=== PATIENT | male | born 1945 | race Caucasian/White ===

== ENCOUNTER 2016-08-23 08:34 | Inpatient (IN) | payer OTHER ==
[~2016-08-23 08:34] MED LIST: ACETAMINOPHEN 325 MG TAB PO ONE; CEFAZOLIN 2 GM/DEXTR 100 ML IV ONE; CHLORHEXIDINE GLUC HIBICLENS 118 ML BTL TP ONE; DEXAMETHASONE 4 MG/ML VIAL IVP ONE; FAMOTIDINE 20 MG TAB PO ONE; ROPI/epiNEPH/KETOROLAC JOINT COCKTAIL IU ONE; TRANEXAMIC ACID 3,000 MG in NS 50 ML IRR ONE
[2016-08-23] MEDS ORDERED: TRANEXAMIC ACID 3,000 MG/50 ML BAG IRR ONE (09:21)
[2016-08-23] MEDS ORDERED: DEXAMETHASONE 4 MG/ML VIAL ONE (09:32)
[2016-08-23] MEDS ORDERED: ACETAMINOPHEN 325 MG TAB ONE (09:32)
[2016-08-23] MEDS ORDERED: FAMOTIDINE 20 MG TAB ONE (09:32)
[2016-08-23] MEDS ORDERED: CEFAZOLIN 2 GM/DEXTROSE/100 ML BAG IV ONE (09:32)
[2016-08-23] MEDS ORDERED: LIDOCAINE 1% 2 ML INJ ONE (09:33)
[2016-08-23] MEDS ORDERED: fentaNYL 100 MCG/2 ML INJ ONE (10:26)
[2016-08-23] MEDS ORDERED: LIDOCAINE 1% 5 ML SDV ID PRN (10:38)
[2016-08-23] MEDS ORDERED: LR 1,000 ML IV ONE (10:38)
[2016-08-23] MEDS ORDERED: MIDAZOLAM 2 MG/2 ML VIAL ONE (11:02)
[2016-08-23] MEDS ORDERED: LIDOCAINE 2% 5 ML SDV ONE (11:15)
[2016-08-23] MEDS ORDERED: LACTULOSE 20 GM/30 ML UDCUP PO PRN (11:42)
[2016-08-23] MEDS ORDERED: BISACODYL 10 MG SUPP PR PRN (11:42)
[2016-08-23] MEDS ORDERED: DIPHENOXYLATE/ATROPINE LOMOTIL 1 TAB PO PRN (11:42)
[2016-08-23] MEDS ORDERED: PHARMACY PAIN CONSULT 1 EA MISC PRN (11:42)
[2016-08-23] MEDS ORDERED: POLYETHYLENE GLYCOL 3350 17 GM PKT PO PRN (11:42)
[2016-08-23] MEDS ORDERED: METOCLOPRAMIDE 10 MG/2 ML VIAL IVP PRN (11:42)
[2016-08-23] MEDS ORDERED: ONDANSETRON DISINTEGRATING 4 MG TAB PO PRN (11:42)
[2016-08-23] MEDS ORDERED: MAGNESIUM HYDROXIDE 30 ML UDCUP PO PRN (11:42)
[2016-08-23] MEDS ORDERED: ONDANSETRON 4 MG/2 ML VIAL IVP PRN (11:42)
[2016-08-23] MEDS ORDERED: PROMETHAZINE HCL 25 MG SUPPR PR PRN (11:42)
[2016-08-23] MEDS ORDERED: diphenhydrAMINE 25 MG CAP PO PRN (11:42)
[2016-08-23] MEDS ORDERED: TEMAZEPAM 15 MG CAP PO PRN (11:42)
[2016-08-23] MEDS ORDERED: CYCLOBENZAPRINE 10 MG TAB PO PRN (11:42)
[2016-08-23] MEDS ORDERED: LR 1,000 ML IV SCH (12:00)
--- NOTE | 2016-08-23 12:39 | POSTOPPROG ---
Post Op Note Date of Operation: 08/23/16 Surgeon: Andrzej Tamayo Marking Room Supervisor: gissell tamayo Anesthesiologist: dr. roberts Anesthesia: Spinal Pre-op Diagnosis: Left hip OA Post-op Diagnosis: same Indication: left hip pain due to OA that failed conservative measures Procedure: L RENETTA ant approach Findings: severe hip OA Inf/Abcess present in the surg proc area at time of surgery?: No EBL: 100-500
[2016-08-23] MEDS: ACETAMINOPHEN 325 MG TAB PO SCH ×3 (14:35→23:46)
[2016-08-23] MEDS: oxyCODONE IR 5 MG TAB PO PRN ×3 (16:32→23:46)
[2016-08-23] MEDS: ceFAZolin 2 GM/DEXTROSE 100 ML IV SCH (19:58)
[2016-08-23] MEDS: ASPIRIN 325 MG TAB PO SCH (19:59)
[2016-08-23] MEDS: FAMOTIDINE 20 MG TAB PO SCH (19:59)
[2016-08-23] MEDS: SENNOSIDES/DOCUSATE SODIUM TAB PO SCH (19:59)
[2016-08-24] MEDS: ceFAZolin 2 GM/DEXTROSE 100 ML IV SCH (04:14)
[2016-08-24] MEDS: ACETAMINOPHEN 325 MG TAB PO SCH ×2 (05:24→11:33)
[2016-08-24] MEDS: oxyCODONE IR 5 MG TAB PO PRN (05:25)
[2016-08-24 05:34] LABS: HEMATOCRIT 37.4 % (40.0-51.0)
--- NOTE | 2016-08-24 06:38 | GOP ---
[f rep st] OPERATIVE REPORT DATE OF OPERATION: 08/23/2016 SURGEON: Shakila Liu MD GRAPHIC ILLUSTRATOR: JAZMÍN Tarango. ANESTHESIA: Spinal. PREOPERATIVE DIAGNOSIS: Left hip osteoarthritis. POSTOPERATIVE DIAGNOSIS: Left hip osteoarthritis. PROCEDURE PERFORMED: Left hip total arthroplasty. FINDINGS: ESTIMATED BLOOD LOSS: 200 cc. INDICATIONS: The patient has progressively worsening arthritis of the hip which has failed medical management. The patient understands the treatment options including continued non-operative care and has selected surgical intervention. The patient has decided to undergo total hip arthroplasty via the direct anterior approach, understanding the risks of the procedure including , but not limited to, neurovascular injury, infection, persistent pain, component wear and loosening, deep venous thrombosis, pulmonary embolism, limb length inequality, hip instability (including dislocation), and intra-operative fractures. DESCRIPTION OF PROCEDURE: After proper identification of the patient including verification and marking the surgical site, the patient was brought to the operating room and placed in the supine position. All bony prominences were well padded. Anesthesia was induced without complication and intravenous prophylactic antibiotics were administered prior to skin incision. The operative leg was placed in the Trumpf Arch table extension and the well leg in a Yellofin leg rios. The patient was prepped and draped in the usual sterile fashion. The C-arm was draped for intra-operative fluoroscopy to check acetabular position, femoral component position including leg length and femoral offset. Attention was then drawn to surgical exposure of the hip. An incision was made with a #10 Bard Black blade starting 3 cm lateral and 3 cm distal to the anterior superior iliac spine measuring 8-10 cm and coursing distally toward the greater trochanter. The skin and subcutaneous tissues were divided sharply down to the fascia carlos. The fascia carlos was incised in line with the skin incision exposing the underlying tensor fascia carlos muscle. The muscle was bluntly elevated from the fascia and the first extracapsular Cobra retractor was placed laterally at the junction of the superior femoral neck and greater trochanter. The lateral femoral circumflex vessels were identified, cauterized , and divided with the Aquamantys bipolar cautery. The deep investing fascia of the TFL was divided to allow proper mobilization of the muscle preventing damage during the retraction. The reflected head of the rectus femoris muscle was elevated off the anterior hip capsule and a medial Cobra retractor was placed just proximal to the lesser trochanter. The anterior capsulotomy was made sharply from the superolateral acetabulum to the saddle junction of the superior femoral neck and greater trochanter, then coursing inferomedial towards the lesser trochanter. The retractors were then placed in the intracapsular position for femoral neck osteotomy. Corresponding to pre-operative templating, the osteotomy was made with the oscillating saw carefully protecting the greater trochanter and soft tissues. The femoral head was removed from the acetabulum with a corkscrew and confirmed to be severely arthritic with exposed bone, deformity and osteophytes. Similar findings were confirmed in the acetabulum. The Arch table extension was then placed in 40 degrees external rotation. Attention was then drawn to the acetabular preparation. After placement of the anterior and posterior Cobra retractors outside the labrum and intracapsular, the circumferential labrum was removed sharply. The foveal contents were then removed and hemostasis obtained with cautery. The first reamer selected was sized using the removed femoral head. Reaming began with medialization and then commenced in 2 mm increments at 45 degrees of abduction and 15 degrees of anteversion using fluoroscopic navigation. Reaming ceased 1 mm less than the definitive acetabular component and corresponded to the pre-operative templating. The final acetabular component was inserted using fluoroscopy to achieve proper orientation yielding excellent purchase and stability in the acetabulum. The final acetabular liner was then placed and its seating confirmed. Attention was then turned to the femur. The Arch table extension was placed in extension and adduction, delivering the osteotomized femoral neck into the wound. A 2-pronged femoral elevator was placed at the calcar and another at the tip of the greater trochanter. The posterolateral capsule was released with cautery allowing mobilization of the femur lateral and anterior for preparation. The external rotators were visualized and preserved. A curette and rongeur were used to open the starting point for broaching. Serial broaching started with the #0 broach and ended with the broach that exhibited excellent fit in the proximal femur. A change in pitch during mallet strikes was accompanied by the inability to advance the broach any further. The trial reduction was performed and fluoroscopic navigation was utilized to check limb length. Adjustments were made to equalize limb length accordingly. After the final trials were accepted they were removed and the wound was copiously lavaged. The femoral component was seated to the same depth as the final broach and the femoral head was impacted onto the clean trunnion. The hip was then reduced for the final time and once more fluoroscopy was used to check that limb length equality was achieved. The wound was irrigated and closed in layers, the fascia carlos with 2-0 Quill, the subcutaneous tissue with 2-0 Quill, and the skin with Dermabond. Sterile dressings were applied. Final sharps and sponge counts were accurate. The patient was then transferred to a hospital bed and brought to the recovery room in stable condition. IMPLANTS: Accolade II size 5 at 127. The acetabular component is a 56 mm Tritanium. The liner is a Trident X3, 36 mm. The head is a Biolox Delta 36 mm -2.5. /[id number]/MODL MTDD
[2016-08-24 07:37] VITALS: BP 126/52; PULSE 67; RESP 14; TEMP 98.2; O2SAT 90
[2016-08-24] MEDS: ASPIRIN 325 MG TAB PO SCH (08:41)
[2016-08-24] MEDS: FAMOTIDINE 20 MG TAB PO SCH (08:41)
[2016-08-24] MEDS: SENNOSIDES/DOCUSATE SODIUM TAB PO SCH (08:41)
--- NOTE | 2016-08-24 09:49 | SOAPPROG ---
SOAP Progress Note Assessment/Plan: Assessment: Patient is doing well POD 1 s/p L RENETTA Pain management: pain is well controlled on oral pain meds. VTE ppx: recommend aspirin daily for 3 weeks, cont DOROTEO and SCDs Anemia: level is expected initially postop. Asymptomatic. Continue to monitor D/c planning: d/c to home today pending release from PT Plan: 08/24/16 09:48 Subjective: Norm is doing well today, denies SOB, chest pain and N/V. Objective: Vital Signs Temp Pulse Resp BP Pulse Ox 36.8 C 67 14 126/52 H 90 L 08/24/16 07:34 08/24/16 07:34 08/24/16 07:34 08/24/16 07:34 08/24/16 07:34 Laboratory Results 08/24/16 04:23 08/23/16 08/24/16 08/25/16 05:59 05:59 05:59 Intake Total 4463 Output Total 2130 275 Balance 2333 -275 LLE: incision dressing is clean and dry, NVI, +pf/df ICD10 Worksheet Patient Problems: Problems Problem Status Onset Primary localized osteoarthritis of left hip Acute
[2016-08-24] MEDS ORDERED: PNEUMOC 13-VAL CONJ-DIP CRM/PF 0.5 ML SYR IM ONE (10:31)
--- NOTE | 2016-08-25 10:52 | GDS ---
[f rep st] DISCHARGE SUMMARY ADMISSION DIAGNOSIS: Left hip osteoarthritis. DISCHARGE DIAGNOSIS: Left hip osteoarthritis. PROCEDURE: Left total hip arthroplasty. VTE PROPHYLAXIS: Aspirin recommended for 3 weeks daily. BRIEF DESCRIPTION OF HOSPITAL STAY: Patient was admitted for an elective joint arthroplasty. The p atient tolerated the procedure well and has passed physical therapy. The patient was given appropri ate antibiotic prophylaxis and venous thromboembolism prophylaxis. The patient's pain was well cont rolled on oral pain medication, patient was holding down food, and had urinated. Decision was made to discharge the patient. The patient was given post-operative prescriptions pre-operatively. PLAN: Please follow up as scheduled, September 07 at 2 p.m. /[id number]/MODL
== END 2016-08-24 12:44 | disposition home or self-care (01) | DRG 470 ==
LOC: F3N 09:09
PROVIDERS: ADMIT Orthopaedic Surgery; ATTEND Orthopaedic Surgery
PROC: 0SRB04Z Replacement of Left Hip Joint with Ceramic on Polyethylene Synthetic Substitute, Open Approach (ICD-10-PCS; principal; 2016-08-23 11:15)
DX: M16.12 Unilateral primary osteoarthritis, left hip (principal); I71.2 Thoracic aortic aneurysm, without rupture; Z23 Encounter for immunization
CPT/HCPCS: 97116-GP; 97161-GP; 97165-GO; 97530-GP; G0009; G8978-GP-CJ; G8979-GP-CI; G8980-GP-CI; G8987-GO-CI; G8988-GO-CI; G8989-GO-CI; J0171; J0690; J1100; J1885; J2250; J2795; J3010

== ENCOUNTER 2016-12-27 20:49 | Observation (INO) | payer OTHER ==
--- NOTE | 2016-12-27 21:15 | CPEKG ---
Heart Rate: 86 RR Interval: 698 P-R Interval: 208 QRSD Interval: 106 QT Interval: 368 QTC Interval: 440 P [place]: 47 QRS [place]: -14 T Wave [place]: 40 EKG Severity - ABNORMAL ECG - EKG Impression: SINUS RHYTHM EKG Impression: INFERIOR INFARCT, OLD Electronically Signed By: Enrique Burt 27-Dec-2016 23:31:38
[2016-12-27] MEDS ORDERED: ASPIRIN EC 325 MG TAB PO ONE (21:37)
--- NOTE | 2016-12-27 21:43 | EDPHY ---
H & P Stated Complaint: L CP HPI/ROS: HPI CHIEF COMPLAINT: Left-sided chest pain HISTORY OF PRESENT ILLNESS: Patient very pleasant 71-year-old male, he denies having any significant medical history, he recently a few months ago had a left hip replacement. For that preop workup he had an echocardiogram that showed and dilated aortic root, and aortic thoracic aneurysm. He presents to the emergency room left-sided chest discomfort. He states that it is worse when he moves. Additionally it is worse when he breathes in. Sharp in nature. Does not radiate. It is on his left lateral side. States started last night before midnight. Was unable to sleep all night. Tossing and turning. Worse when he moves. Currently 6/10. Worse when he breathes in. No hemoptysis. He does endorse shortness of breath with this. He denies leg pain. Back pain, abdominal pain. Fever. Past Medical History: No medical history Past Surgical History: Left hip replacement Social History: Occasional tobacco denies illicit drugs or daily alcohol use. Family History: Noncontributory ROS REVIEW OF SYSTEMS: A comprehensive 10 point review of systems is otherwise negative aside from elements mentioned in the history of present illness. Exam Constitutional appears nontoxic, triage nursing summary reviewed, vital signs reviewed, awake/alert. Eyes normal conjunctivae and sclera, EOMI, PERRLA. HENT normal inspection, atraumatic, moist mucus membranes, no epistaxis, neck supple/ no meningismus, no raccoon eyes. Respiratory clear to auscultation bilaterally, normal breath sounds, no respiratory distress, no wheezing. Cardiovascular rate normal, regular rhythm, no murmur, no edema, distal pulses normal. Gastrointestinal soft, non-tender, no rebound, no guarding, normal bowel sounds, no distension, no pulsatile mass. Genitourinary no CVA tenderness. Musculoskeletal no midline vertebral tenderness, full range of motion, no calf swelling, no tenderness of extremities, no meningismus, good pulses, neurovascularly intact. Skin pink, warm, & dry, no rash, skin atraumatic. Neurologic awake, alert and oriented x 3, AAOx3, moves all 4 extremities equally, motor intact, sensory intact, CN II-XII intact, normal cerebellar, normal vision, normal speech. Psychiatric normal mood/affect. Heme/Lymph/Immune no lymphadenopathy. Differential diagnosis includes but is not limited to: Pulmonary embolism, pneumonia, aortic dissection, ACS, atypical chest pain, pneumothorax, pneumonia , , , congestive heart failure, tumor, musculoskeletal pain, esophageal pain, GERD, peptic ulcer disease, pancreatitis Medical Decision Making: Plan for this patient IV establishment full secured entrance monitor obtain EKG, troponin, D-dimer, proceed with CT angiogram of his chest to rule out pulmonary embolism as well as aortic dissection. Morphine for pain control. Re-evaluation: EKG interpretation by me on record in [employer] system. Impression time of EK: This is sinus rhythm rate of 86, Q-waves noted in inferior leads to 3 AVF. Old infarct. Otherwise no acute ischemic change. CT scan of the angiogram chest The results of the study are this shows a left lower lobe pulmonary embolism with pulmonary infarct with a small effusion additionally aortic thoracic aneurysm 5.5, additionally a right lower lobe pulmonary nodule this needs to be followed up 6 months as he is a smoker., The study was read by Dr. Sevilla. I viewed the images myself on the PACS system. 2252: Have updated this patient. He understands to be in the hospital for left lower pulmonary embolism. Pulmonary infarct. Pain control. Additionally will need evaluate his thoracic aneurysm. Additionally I did notify him he has a pulmonary nodule. No evidence of aortic dissection. He is fine with this plan. Lovenox has been given. Source: Patient - Personal History Current Tetanus/Diphtheria Vaccine: Unsure Current Tetanus Diphtheria and Acellular Pertussis (TDAP): Unsure - Medical/Surgical History Hx Asthma: No Hx Chronic Respiratory Disease: No Hx Diabetes: No Hx Cardiac Disease: No Hx Renal Disease: No Hx Cirrhosis: No Hx Alcoholism: Yes Hx HIV/AIDS: No Hx Splenectomy or Spleen Trauma: No Other PMH: aortic aneurysm, L hip replacement, cyst removed from kidney - Social History Smoking Status: Current some day smoker Constitutional: Initial Vital Signs Temperature (C) 38.3 C 12/27/16 20:59 Heart Rate 86 12/27/16 20:59 Respiratory Rate 18 12/27/16 20:59 Blood Pressure 156/87 H 12/27/16 20:59 O2 Sat (%) 93 12/27/16 20:59 O2 Delivery Mode Nasal Cannula O2 (L/minute) 2 Allergies/Adverse Reactions: No Known Allergies Allergy (Verified 12/27/16 20:58) Home Medications: Medication Instructions Recorded Enoxaparin [Lovenox 80 MG (*)] 70 mg SC BID #14 syr 12/28/16 Herbals/Supplements -Info Only 1 ea PO DAILY 12/28/16 Hydrocodone/APAP 5/325 [Douds 1 - 2 tab PO Q4HRS PRN #30 tab 12/28/16 5/325 (*)] Multivitamins [Multivitamin (*)] 1 each PO DAILY 12/28/16 Warfarin Sodium [Coumadin 5MG (*)] 5 mg PO DAILY #30 tab 12/28/16 Medical Decision Making - Data Points Laboratory Results: Laboratory Results 12/27/16 21:20 12/27/16 21:20 Medications Given: Discontinued Medications Hydrocodone Bitart/Acetaminophen (Douds 5/325) 1 - 2 tab PO Q4HRS PRN PRN Reason: Pain, Moderate Able to Take PO Stop: 01/07/17 00:26 Last Admin: 12/28/16 13:54 Dose: 1 tab Aspirin (Aspirin) 324 mg PO EDNOW ONE Stop: 12/27/16 21:52 Last Admin: 12/27/16 22:47 Dose: 324 mg Aspirin Buffered (Aspirin Ec) 325 mg PO EDNOW ONE Stop: 12/27/16 21:38 Last Admin: 12/27/16 22:55 Dose: Not Given Enoxaparin Sodium (Lovenox) 70 mg SC EDNOW ONE Stop: 12/27/16 23:04 Last Admin: 12/27/16 23:18 Dose: Not Given Enoxaparin Sodium (Lovenox) 70 mg SC EDNOW ONE Stop: 12/27/16 23:16 Last Admin: 12/27/16 23:14 Dose: 70 mg Enoxaparin Sodium (Lovenox) 70 mg SC BID NAI Stop: 06/26/17 09:44 Last Admin: 12/28/16 10:18 Dose: 70 mg Hydromorphone HCl (Dilaudid) 0.5 - 1 mg IVP Q4HRS PRN PRN Reason: Pain, Severe Unable to Take PO Stop: 01/07/17 00:26 Last Admin: 12/28/16 08:09 Dose: 1 mg Sodium Chloride (Ns) 1,000 mls @ 0 mls/hr IV EDNOW ONE; Wide Open PRN Reason: Protocol Stop: 12/27/16 21:52 Last Admin: 12/27/16 22:48 Dose: 1,000 mls Sodium Chloride (Ns) 1,000 mls @ 50 mls/hr IV CONT NAI Stop: 06/26/17 00:29 Last Admin: 12/28/16 05:43 Dose: 1,000 mls Morphine Sulfate (Morphine) 4 mg IVP EDNOW ONE Stop: 12/27/16 21:57 Last Admin: 12/27/16 22:49 Dose: 4 mg Ondansetron HCl (Zofran) 4 mg IVP EDNOW ONE Stop: 12/27/16 21:57 Last Admin: 12/27/16 22:47 Dose: 4 mg Departure - Departure Disposition: [facility] Acute Clinical Impression: Lung nodule Pulmonary emboli Qualifiers: Pulmonary embolism type: other Chronicity: acute Acute cor pulmonale presence: without acute cor pulmonale Qualified Code(s): I26.99 - Other pulmonary embolism without acute cor pulmonale Thoracic aortic aneurysm Qualifiers: Presence of rupture: without rupture Qualified Code(s): I71.2 - Thoracic aortic aneurysm, without rupture Condition: Fair
[2016-12-27 21:49] LABS: % IMMATURE GRANULYOCYTES 0.4 % (0.0-1.1); ABSOLUTE IMMATURE GRANULOCYTES 0.05 10^3/uL (0.00-0.10); ADD DIFF? NO; ADD MORPH? NO; ADD SCAN? NO; ATYPICAL LYMPHOCYTE FLAG 0 (0-99); FRAGMENT RBC FLAG 0 (0-99); HEMATOCRIT 48.1 % (40.0-51.0); HEMOGLOBIN 16.1 g/dL (13.7-17.5); LEFT SHIFT FLG 0 (0-99); LIPEMIA HEMOLYSIS FLAG 80 (0-99); MEAN CELL HEMOGLOBIN 31.6 pg (27.9-34.1); MEAN CELL HEMOGLOBIN CONCENTR. 33.5 g/dL (32.4-36.7); MEAN CELL VOLUME 94.3 fL (81.5-99.8); MEAN PLATELET VOLUME 9.5 fL (8.7-11.7); PLATELET CLUMPS FLAG 0 (0-99); PLATELET COUNT 169 10^3/uL (150-400); RED CELL DISTRIBUTION WIDTH 12.5 % (11.5-15.2)
[2016-12-27] MEDS ORDERED: NS 1,000 ML IV ONE (21:51)
[2016-12-27] MEDS ORDERED: ASPIRIN 81 MG CHEWABLE TAB PO ONE (21:51)
[2016-12-27 21:52] LABS: ANION GAP 12 mEq/L (8-16); CARBON DIOXIDE 21 mEq/l (22-31); CHLORIDE 104 mEq/L (97-110); GLOMERULAR FILTRATION RATE > 60; GLUCOSE 120 mg/dL (70-100); POTASSIUM 3.9 mEq/L (3.5-5.2); SODIUM 137 mEq/L (134-144)
[2016-12-27] MEDS ORDERED: IOPAMIDOL (ISOVUE 370) 100 ML BTL IV ONE (21:56)
[2016-12-27] MEDS ORDERED: ONDANSETRON 4 MG/2 ML VIAL IVP ONE (21:56)
[2016-12-27 22:03] LABS: TROPONIN I < 0.012 ng/mL (0.000-0.034)
[2016-12-27 22:12] LABS: INR 1.06 (0.83-1.16); PROTIME(PATIENT) 13.7 SEC (12.0-15.0)
[2016-12-27 22:13] LABS: ALANINE AMINOTRANSFERASE 28 IU/L (21-72); ALBUMIN 4.1 g/dL (3.5-5.0); ALKALINE PHOSPHATASE 69 IU/L (38-126); APTT 33.1 SEC (23.0-38.0); ASPARTATE AMINOTRANSFERASE 21 IU/L (17-59); BILIRUBIN,TOTAL 1.3 mg/dL (0.1-1.4); BILIRUBIN-CONJUGATED 0.3 mg/dL (0.0-0.5); TOTAL PROTEIN 6.9 g/dL (6.3-8.2)
[2016-12-27 22:25] LABS: CREATINE KINASE-MB FRACTION 0.38 ng/mL (0.00-3.19)
[2016-12-27] MEDS ORDERED: ENOXAPARIN 60 MG/0.6 ML SYR SC ONE ×2 (22:50→23:03)
[2016-12-27] MEDS ORDERED: ENOXAPARIN 80 MG/0.8 ML SYR SC ONE (23:15)
[2016-12-27 23:52] VITALS: RESP 18
[2016-12-28] MEDS ORDERED: NICOTINE 14 MG/24 HR PATCH TD PRN (00:27)
[2016-12-28] MEDS ORDERED: LORazepam 0.5 MG TAB PO PRN (00:27)
[2016-12-28] MEDS ORDERED: HYDROmorphONE/DILAUDID 1 MG/ML INJ IVP PRN (00:27)
[2016-12-28] MEDS ORDERED: ONDANSETRON DISINTEGRATING 4 MG TAB PO PRN (00:27)
[2016-12-28] MEDS ORDERED: HYDROCODONE/APAP 5/325 TAB PO PRN (00:27)
[2016-12-28] MEDS ORDERED: ACETAMINOPHEN 325 MG TAB PO PRN (00:27)
[2016-12-28] MEDS ORDERED: ONDANSETRON 4 MG/2 ML VIAL IVP PRN (00:27)
[2016-12-28] MEDS ORDERED: NS 1,000 ML IV SCH (00:30)
--- NOTE | 2016-12-28 05:15 | GHP ---
[f rep st] HISTORY AND PHYSICAL DATE OF ADMISSION: 12/27/2016 SOURCE: The patient provides history, appears reliable. The MR reviewed and case discussed with ED provider. CHIEF COMPLAINT: Left-sided chest wall pain. HISTORY OF PRESENT ILLNESS: This is a pleasant 71-year-old gentleman with past medical history signi ficant for a moderate size thoracic aortic aneurysm, murmur, history of kidney stones, otherwise fair ly healthy, who presents to the emergency department today with complaints of several days of progres sive left lower chest wall pain. The patient reports he noted a sharp shooting pain, worse with insp iration or movement that is on the left side of his chest wall that radiates to his back. He denies hemoptysis, but has a history of chronic cough, slightly increased from baseline. The patient notes significant shortness of breath and dyspnea on exertion that has progressed over the last day. The p atient states that he has had trouble sleeping and cannot get comfortable secondary to the pain. The patient had a recent history of a total hip arthroplasty some time ago, but reports he had been carley vering well from that. He denies any history of lower extremity swelling. REVIEW OF SYSTEMS: GENERAL: The patient reports that he has been feeling a little flushed and warm, but no fevers or chills. SKIN: No rash or sores. ENT: The patient denies any rhinorrhea or sore t hroat. EYES: The patient does wear glasses. The patient reports slow progressively changing vision , slightly blurry. CV: The patient denies any central or substernal chest pain or pressure. He rep orts that palpitations are an ongoing issue for last several months but no associated lightheadedness or syncope. RESPIRATORY: The patient reports some mild cough and shortness of breath. GI: No nikunj sea, vomiting, abdominal pain, or diarrhea. : No dysuria or hematuria. MUSCULOSKELETAL: The florencio ca complains of diffuse osteoarthritis greatly in his knees and hips. No myalgias. NEURO: The jigna syed denies any headache. No numbness or tingling. PSYCH: The patient denies any anxiety or depre ssion. Remainder of review of systems negative except as noted above. ALLERGIES: No known drug allergies. MEDICATIONS: Aspirin 325 mg p.o. p.r.n. PAST MEDICAL HISTORY: Significant for nephrolithiasis, thoracic aortic aneurysm. The patient states that it was previously 5 cm. He had evaluation with echocardiogram 08/2016. The patient otherwise denied any other medical issues. He does have a history of osteoarthritis and significant alcohol de pendence. PAST SURGICAL HISTORY: Significant for a left total hip arthroplasty, left kidney cyst resection, a crush heel injury requiring surgical intervention. FAMILY HISTORY: Significant for mother with diabetes. No family members with history of DVT or PEs. SOCIAL HISTORY: The patient lives with his . He quit smoking 2-3 years ago with a 40 pack-year history. He currently continues to smoke little cigars, however, 1-2 per day. He denies any drug us e, but he does actually smoke marijuana several times weekly. Beer, the patient was forthcoming with quantity of alcohol consumed on a daily basis, but is somewhat between 5-7 depending on sporting act ivities on TV. The patient with previous history of alcohol abuse. CODE STATUS: The with advance directives. His , Stephanie, is DPOA. The patient desires to be a l imited code. He does not want any compressions or defibrillation, but he is amenable to intubation a nd ventilator support if needed. PHYSICAL EXAMINATION: VITAL SIGNS: On arrival, temperature 38.3, blood pressure 130/77, heart rate 83, respiratory rate 16, O2 saturation 94% on 2 L by nasal cannula. Vitals prior to going to the the [facility] or: Blood pressure 136/77, heart rate 90, respiratory rate 18, O2 saturation 92% on 2 L of nasal can nula. Temperature 36.8. GENERAL: No acute distress, very pleasant, adult male, who is lying quietl y in bed awake. HEAD: Normocephalic, atraumatic. EYES: Extraocular muscles intact. Pupils equal, round, slightly decrease reactivity to light bilaterally but symmetric. No scleral icterus or conju nctival injection. Cataract lens appreciated grossly on exam. ENT: Mucous membranes appear moist. No oropharyngeal erythema or exudates. Dentition is in fair condition. NECK: Supple, trachea midli ne. CV: Regular rate and rhythm. The patient with a 3-4/6 systolic murmur. No rubs or gallops fran reciated. ABDOMEN: Obese, soft, nontender to palpation. No rebound, guarding, or masses appreciate d. RESPIRATORY: Unlabored breathing. Lungs are clear to auscultation with the exception of the lef t lower lung, which has some crackles and decreased breath sounds at the base. : No Ship[place] in place . No suprapubic tenderness to palpation. No CVA tenderness. MUSCULOSKELETAL: The patient has stre ngth 5/5, able to sit up independently. Moves all extremities. NEURO: Cranial nerves 2-12 intact a nd symmetric bilaterally. The patient is awake, alert, and oriented x3. PSYCH: The patient's thoug ht process content is appropriate. LABORATORY DATA: WBC 11.93, hemoglobin and 48.1, MCV of 94.3, platelet count 169. Neutro felicitas count . PT is 13.7, INR 1.06, PTT is 33.1. D-dimer 2.24. Sodium is 137, potassium 3 .9, chloride 104, CO2 of 21, BUN 15, creatinine is 1.0, estimated GFR greater than 60, glucose 120, c alcium 9.0, magnesium 2.1. Total bili 1.3, conjugated bili 0.3, ALT 28, AST 21, alk phos 69, CK 69, troponin less than 0.012. BTNP is 454. Total protein 6.9, albumin 12.1, lipase 135. IMAGING: Chest x-ray, report and image reviewed. Mild increased markings to left base with small le ft effusion. Image reviewed. CT of the chest, image report reviewed, showing subsegmental pulmonary embolus to the left lower lobe with possible associated area pulmonary infarct and small left effusion. Moderate aneurysm of the a scending aorta measuring 5.5 cm, noncalcified. Smooth oval pulmonary nodule right lower lobe. Recom mend 6-month followup. EKG, reviewed myself, normal sinus rhythm in the 80s. QTc is 415. Q waves in the inferior inferolat eral leads present. No acute ST changes. Less than [address] elevation V3. ASSESSMENT AND PLAN: A pleasant 71-year-old gentleman, with no significant past medical history, who presents with complaints of progressively worsening left lower chest wall pain with radiation to his back and dyspnea. 1. Pulmonary embolus located in the left subsegmental region with associated effusion and infarct. The patient's pain currently improved with control on narcotics. Continue with supportive care, oxyg en p.r.n. We will have the patient complete a room air challenge and exertional pulse oximetry prior to discharge. The patient has received Lovenox, and will plan to continue this at this time. Furth er discussion will need to be made with the patient's cardiology team regarding the aneurysm. I am no t able to locate the patient's report of his echocardiogram noting size in August. The patient reports that it seems to be stable in size. Also, will need to consider appropriate options for anticoagulat ion. This was discussed with the patient. He will continue on Lovenox. Until we can ascertain cove rage for other newer agent, the patient will be on Coumadin with a Lovenox bridge. He reports that jourdan romo would feel comfortable self administering Lovenox injections at home if needed. 2. Effusion related to pulmonary embolus. The patient with supplemental oxygen p.r.n. 3. Leukocytosis, mildly elevated and likely reactive in setting of the patient's pulmonary embolus. Will plan to repeat in the morning. Hold off on any antibiotics, or initiate if the patient develop s fevers. 4. Hyperglycemia, mild, nonfasting laboratories. We will continue to monitor closely. No previous history of diabetes. 5. Elevated BTNP related to a pulmonary embolus. Continue to monitor. 6. Nodule in the right lung. Six-month followup studies have been recommended to evaluate for stabi lity of the nodule. 7. Fluids, electrolytes, and nutrition: Intravenous fluids. Electrolyte replacement if needed. Di et as tolerated. 8. Prophylaxis. Therapeutic Lovenox. Sequential compression devices only if tolerated. CODE STATUS: Limited with a request for no compressions or cardiac resuscitations. The patient amen able to intubation. DISPOSITION: The patient admitted to inpatient status on the PCU secondary to severity of pain and e ffusion present with need to further evaluate treatment options in setting of a large thoracic aortic aneurysm. /[id number]/MODL
[2016-12-28 05:52] LABS: % IMMATURE GRANULYOCYTES 0.4 % (0.0-1.1); ABSOLUTE IMMATURE GRANULOCYTES 0.05 10^3/uL (0.00-0.10); ADD DIFF? NO; ADD MORPH? NO; ADD SCAN? NO; ATYPICAL LYMPHOCYTE FLAG 0 (0-99); FRAGMENT RBC FLAG 0 (0-99); HEMATOCRIT 44.6 % (40.0-51.0); HEMOGLOBIN 14.6 g/dL (13.7-17.5); LEFT SHIFT FLG 0 (0-99); LIPEMIA HEMOLYSIS FLAG 80 (0-99); MEAN CELL HEMOGLOBIN CONCENTR. 32.7 g/dL (32.4-36.7); MEAN CELL VOLUME 97.8 fL (81.5-99.8); MEAN PLATELET VOLUME 10.1 fL (8.7-11.7); PLATELET CLUMPS FLAG 0 (0-99); PLATELET COUNT 152 10^3/uL (150-400); RED BLOOD CELL COUNT 4.56 10^6/uL (4.40-6.38); RED CELL DISTRIBUTION WIDTH 12.7 % (11.5-15.2)
[2016-12-28 06:10] LABS: ANION GAP 8 mEq/L (8-16); CALCIUM 8.3 mg/dL (8.5-10.4); CARBON DIOXIDE 26 mEq/l (22-31); CHLORIDE 104 mEq/L (97-110); GLOMERULAR FILTRATION RATE > 60; GLUCOSE 84 mg/dL (70-100); SODIUM 138 mEq/L (134-144)
[2016-12-28 08:04] VITALS: BP 124/66; PULSE 75; TEMP 99.8
[2016-12-28] MEDS ORDERED: ENOXAPARIN 80 MG/0.8 ML SYR SC SCH (09:45)
[2016-12-28 11:03] VITALS: O2SAT 87
--- NOTE | 2016-12-28 12:16 | PDHOMEO2F ---
Home Oxygen Face to Face Home Orders: I certify that a physician or a nurse practitioner or physician's assistant family teacher has had a oynw-ut-jlif encounter with this patient on the date of this order due to the diagnosis listed, which relates to the primary reason the patient requires home oxygen. Alternative treatments have been tried, or considered, and deemed ineffective. It is anticipated that supplemental oxygen will result in improvement with treatment. Home oxygen qualifying diagnosis: pulmonary embolism SpO2 on room air (%): 85% Frequency of home oxygen needed: continuous Home oxygen liters per minute: 2 Home oxygen delivery device: nasal cannula Concentrator: Yes E-tanks for mobility and back up: Yes If ordering portable O2, is the patient mobile in the home?: Yes I certify that, based on these findings, the home oxygen is medically necessary for this patient for the following length of time. Length of time home oxygen needed: 1 month
--- NOTE | 2016-12-28 15:40 | ASMTCMCOM ---
CM Note CM Note Notes: Chart reviewed, pt is a 71 y/o man admitted w/ PE LLL. CM met w/ pt and family for dispo planning. 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 CM provided some information regarding it and provided family with the [facility] "Your Right to Make Healthcare Decisions". Pt willl discharge independent with supportive family. CM available for changes. Date Signed: 12/28/2016 03:39 PM Electronically Signed By:DENIZ Mejias
[2016-12-28] MEDS ORDERED: WARFARIN SODIUM 5 MG TAB PO ONE (16:00)
--- NOTE | 2016-12-28 16:13 | ASDISCHSUM ---
Discharge Information Plan Status:Home with No Needs Medically Cleared to Leave:12/28/2016 Discharge Date:12/28/2016 03:40 PM CM D/C Disposition:Home, Routine, Self-Care ADT D/C Disposition:Home, Routine, Self-Care Projected Discharge Date:12/28/2016 12:00 AM Transportation at D/C: Discharge Delay Reason: Follow-Up Date:12/28/2016 12:00 AM Discharge Slot: Final Diagnosis: Placement Information Patient Contact Information Contact Name:LORI Relationship: Address:[address] [place] [address] City:[facility] Phone: [facility]/Zip Code:[place] [address] Email: Financial Information Financial Class:HMO and PPO Plans Primary Plan Desc:HMO [place] Primary Plan Number:[id number] Secondary Plan Desc:MEDICARE OUTPATIENT Secondary Plan Number:[id number] Assessment Information [facility] CM Progress Note CM Note CM Note Notes: Chart reviewed, pt is a 71 y/o man admitted w/ PE LLL. CM met w/ pt and family for dispo planning. 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 CM provided some information regarding it and provided family with the [facility] "Your Right to Make Healthcare Decisions". Pt willl discharge independent with supportive family. CM available for changes. Date Signed: 12/28/2016 03:39 PM Electronically Signed By:DENIZ Mejias Intervention Information
--- NOTE | 2016-12-28 21:17 | GDS ---
[f rep st] DISCHARGE SUMMARY DISCHARGE DIAGNOSES: 1. Acute pulmonary embolism. 2. Acute hypoxic respiratory failure secondary to PE. 3. Pleuritic chest pain secondary to PE. 4. Thoracic aortic aneurysm, chronic. 5. History of nephrolithiasis. HISTORY OF PRESENT ILLNESS: This is a 71-year-old male with a history of nephrolithiasis and a known thoracic aortic aneurysm, who presents with acute left-sided chest pain. For details of patient's i nitial presentation, please see the history and physical dated 12/27/2016. CONSULTATIVE SERVICES: None. PROCEDURES: On 12/27/2016, patient had a CTA of the chest, which showed subsegmental pulmonary embol i to the left lower lobe with associated pulmonary infarction and small effusion, as well as a modera te aneurysm of the ascending aorta measured at 5.5. HOSPITAL COURSE: 1. Acute pulmonary embolism with infarction. Patient was initiated on anticoagulation. Showed no c linical or radiographic signs of right heart strain. Remained mildly hypoxic and uncomfortable, randall anting hospital admission and titration of pain medication. On the day disposition, the patient was treated with Lovenox, initiated on Coumadin therapy, educated by pharmacy, and discharged with oral p ain medications, as well as home oxygen, with expectations of both pain medications and oxygen would be titratable over the course of the following 5-7 days. The patient will follow in the Anticoagulat ion Clinic in the next 48 hours and with his primary care provider for ongoing medication titration a nd treatment for his pulmonary embolism. 2. Thoracic aortic aneurysm. This is a known diagnosis for this patient. He is already scheduled t o meet with Cardiothoracic Surgery. The patient will maintain this appointment in the next 7-10 days . We will continue this short acting anticoagulation regimen until he is evaluated by the surgeons a nd overall monitoring and surgical plan is placed. 3. Pleuritic chest pain secondary to pulmonary embolism. The patient was provided with oral pain me dications, again with the expectation that those should be titrated off in the next 3-7 days. 4. Acute hypoxic respiratory failure. The patient did require supplemental oxygen particularly with exertion, in the setting of severe pleuritic pain with PE. Patient will be provided with this, and again needs to follow in the next 7-10 days with his outpatient provider for discontinuation of oxyge n when appropriate. MEDICATIONS AT DISPOSITION: Please reference med rec printed on 12/28/2016. PENDING STUDIES: None. FOLLOWUP APPOINTMENTS: 1. Anticoagulation for INR titration on new initiation warfarin therapy. 2. Outpatient Cardiothoracic Surgery for initiation of monitoring and ongoing planning related to th e patient's thoracic aortic aneurysm. 3. Primary care provider for ongoing management of his medical comorbidities. TIME SPENT: I spent greater than 30 minutes in the planning and coordination of this discharge. /[id number]/MODL
== END 2016-12-28 15:40 | disposition home or self-care (01) ==
LOC: INTOOBSV 23:01 → F2W 23:40
PROVIDERS: ADMIT Family Medicine; ATTEND Hospitalist
DX: I26.99 Other pulmonary embolism without acute cor pulmonale (principal); J96.01 Acute respiratory failure with hypoxia; R91.1 Solitary pulmonary nodule; I71.2 Thoracic aortic aneurysm, without rupture; N20.0 Calculus of kidney; Z96.642 Presence of left artificial hip joint; Z87.891 Personal history of nicotine dependence
CPT/HCPCS: 71020; 71275; 93005; G0378; 96374; J1170; J1650; J2405; Q9967

== ENCOUNTER 2017-05-24 12:13 | Inpatient (IN) | payer OTHER ==
[2017-05-24] MEDS ORDERED: NS 1,000 ML IV ONE (12:19)
[2017-05-24] MEDS ORDERED: DIAZEPAM 5 MG TAB PO ONE (12:19)
[2017-05-24] MEDS ORDERED: diphenhydrAMINE 25 MG CAP PO ONE ×2 (12:19→12:54)
[2017-05-24] MEDS ORDERED: FAMOTIDINE 20 MG TAB PO ONE (12:19)
[2017-05-24] MEDS ORDERED: FAMOTIDINE 20 MG TAB ONE (12:54)
[2017-05-24] MEDS ORDERED: DIAZEPAM 5 MG TAB ONE (12:54)
--- NOTE | 2017-05-24 13:00 | CPEKG ---
Heart Rate: 63 RR Interval: 952 P-R Interval: 206 QRSD Interval: 108 QT Interval: 428 QTC Interval: 439 P [place]: 69 QRS [place]: -1 T Wave [place]: 48 EKG Severity - ABNORMAL ECG - EKG Impression: SINUS RHYTHM Electronically Signed By: Rohit Macias 24-May-2017 17:52:41
[2017-05-24 13:16] LABS: PLATELET COUNT 164 10^3/uL (150-400)
[2017-05-24 13:29] LABS: INR 1.01 (0.83-1.16); PROTIME(PATIENT) 13.5 SEC (12.0-15.0)
[2017-05-24] MEDS ORDERED: LIDOCAINE 1% 300 MG/30 ML SDV ONE (13:37)
[2017-05-24] MEDS ORDERED: fentaNYL 100 MCG/2 ML INJ ONE (13:37)
[2017-05-24] MEDS ORDERED: MIDAZOLAM 2 MG/2 ML VIAL ONE (13:37)
[2017-05-24] MEDS ORDERED: IOPAMIDOL (ISOVUE-370) 150 ML BTL IV ONE (13:38)
[2017-05-24] MEDS ORDERED: VERAPAMIL 5 MG/2 ML VIAL ONE (13:38)
[2017-05-24] MEDS ORDERED: HEPARIN 10,000 UNIT/10 ML MDV (1,000 UNIT/ML) ONE (13:38)
--- NOTE | 2017-05-24 13:44 | PDHPUP ---
History & Physical Update H&P update statement: This history and physical update is based on an assessment of the patient which was completed after admission or registration (within 24 hours), but prior to the surgery/procedure. H&P update: H&P reviewed & patient examined, no change in patient's condition since H&P completed (Med test right wrist normal at < 5 sec.)
--- NOTE | 2017-05-24 13:45 | PDPROPOC ---
Sedation Plan of Care Sedation Plan of Care: vital signs stable, mental status noted, patient educated of risks, benefits, alternatives, patient can tolerate sedation ASA Classification: ASA 1 Planned drugs: fentanyl, midazolam Mallampati Score: Class 2 Mallampati Reference Image: Patient passed 3-3-2 rule?: Yes
--- NOTE | 2017-05-24 14:29 | PDGENHP ---
History & Physical Chief Complaint: Ascending aortic aneurysm and aortic valve regurgitation. History of Present Illness: 72 y/o initially evaluated for a murmur and was found to have moderate AR and a thoracic aortic aneurysm. No clinical cardiac episodes. Now scheduled for TAA repair and AVR tomorrow. Needs cath to exclude CAD. Pertinent Past, Social, Family History: No history of hypertension, diabetes, or hyperlipidemia. Past medical history does include diverticulosis, nephrolithiasis, osteoarthritis, and pulmonary embolism. Surgical history notable for left total hip arthroplasty, foot surgery, and finger surgery. History noncontributory. Patient is a nonsmoker and does not consume significant amounts of alcohol. with adult offspring. Relevant Physical Exam: Well nourished male in no acute distress. Alert and oriented x3. No scleral icterus. Mucous membranes moist. Carotid pulses 2+ without bruits. No JVD. Lung us clear to auscultation. Regular rate and rhythm with a normal S1 and S2. Soft diastolic murmur. Abdomen soft, nontender and nondistended with normal bowel sounds. 2+ pulses in all 4 extremities. Plethysmography on the right index finger remained normal with manual occlusion of the radial artery.
--- NOTE | 2017-05-24 14:31 | PDGENHP ---
History and Physical - Chief Complaint AI, asc ao aneurysm - History of Present Illness 72M with moderate AI and asc ao aneurysm of 5.5 cm here today for coronary angiography in anticipation of open heart surgery on 05/[address] Sandoval. The pt was last evaluated on 01/23 and that time did not have any cardiac-related symptoms. He continues to be symptom free. He denies weakness, lightheadedness, syncope, CP, SOB, orthopnea, PND, abdominal pain, or LE edema. The pt is s/p total hip surgery which he developed pulmonary emboli from and has been anti- coagulated with Coumadin. He was bridged from Coumadin to Lovenox in preparation for heart surgery. History Information - Allergies/Home Medication List Allergies/Adverse Reactions: No Known Allergies Allergy (Verified 12/27/16 20:58) Home Medications: Herbals/Supplements -Info Only 1 ea PO DAILY 12/28/16 [Last Taken 05/17/17 10:00 ] Multivitamins [Multivitamin (*)] 1 each PO DAILY 12/28/16 [Last Taken 05/17/17 10:00] Enoxaparin [Lovenox 80 MG (*)] 80 mg SQ BID 05/18/17 [Last Taken 05/23/17 10:00] Lisinopril [Zestril 20 mg (*)] 20 mg PO DAILY 05/18/17 [Last Taken 05/24/17 10: 00] Warfarin Sodium [Coumadin 1MG (*)] 3.5 mg PO FR 05/18/17 [Last Taken 05/11/17 10 :00] Warfarin Sodium [Coumadin 3MG (*)] 3 mg PO SUMOTUWETHSA 05/18/17 [Last Taken 11/24 10:00] I have personally reviewed and updated: medical history, social history, surgical history - Past Medical History hypertension, pulmonary embolism - Surgical History 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) Additional surgical history: right partial nephrectomy (2016) - Social History Smoking Status: Former smoker Alcohol Use: Heavy Review of Systems Review of Systems: ROS: 2-9 pt reviewed & negative except for what was stated in HPI & below Physical Exam Physical Exam: Constitutional: no apparent distress, appears nourished, not in pain Eyes: icteric sclera Ears, Nose, Mouth, Throat: moist mucous membranes, hearing normal Cardiovascular: regular rate and rhythym Respiratory: no respiratory distress, no rales or rhonchi, clear to auscultation Gastrointestinal: soft, non-tender abdomen Skin: warm, normal color Musculoskeletal: full muscle strength Neurologic: AAOx3 Psychiatric: interacting appropriately, not anxious, not encephalopathic, thought process linear Lab Data & Imaging Review 05/24/17 12:40 05/24/17 12:40 WBC 6.32 10^3/uL (3.80-9.50) 05/24/17 12:40 RBC 5.13 10^6/uL (4.40-6.38) 05/24/17 12:40 Hgb 16.2 g/dL (13.7-17.5) 05/24/17 12:40 Hct 47.8 % (40.0-51.0) 05/24/17 12:40 MCV 93.2 fL (81.5-99.8) 05/24/17 12:40 MCH 31.6 pg (27.9-34.1) 05/24/17 12:40 MCHC 33.9 g/dL (32.4-36.7) 05/24/17 12:40 RDW 12.2 % (11.5-15.2) 05/24/17 12:40 Plt Count 164 10^3/uL (150-400) 05/24/17 12:40 MPV 9.2 fL (8.7-11.7) 05/24/17 12:40 Neut % (Auto) 73.5 % (39.3-74.2) 05/24/17 12:40 Lymph % (Auto) 16.3 % (15.0-45.0) 05/24/17 12:40 [place] % (Auto) 7.1 % (4.5-13.0) 05/24/17 12:40 Eos % (Auto) 2.2 % (0.6-7.6) 05/24/17 12:40 Baso % (Auto) 0.6 % (0.3-1.7) 05/24/17 12:40 Nucleat RBC Rel Count 0.0 % (0.0-0.2) 05/24/17 12:40 Absolute Neuts (auto) 4.64 10^3/uL (1.70-6.50) 05/24/17 12:40 Absolute Lymphs (auto) 1.03 10^3/uL (1.00-3.00) 05/24/17 12:40 Absolute Monos (auto) 0.45 10^3/uL (0.30-0.80) 05/24/17 12:40 Absolute Eos (auto) 0.14 10^3/uL (0.03-0.40) 05/24/17 12:40 Absolute Basos (auto) 0.04 10^3/uL (0.02-0.10) 05/24/17 12:40 Absolute Nucleated RBC 0.00 10^3/uL (0-0.01) 05/24/17 12:40 Immature Gran % 0.3 % (0.0-1.1) 05/24/17 12:40 Immature Gran # 0.02 10^3/uL (0.00-0.10) 05/24/17 12:40 PT 13.5 SEC (12.0-15.0) 05/24/17 12:40 INR 1.01 (0.83-1.16) 05/24/17 12:40 Sodium 145 mEq/L (135-145) 05/24/17 12:40 Potassium 4.1 mEq/L (3.5-5.2) 05/24/17 12:40 Chloride 108 mEq/L (97-110) 05/24/17 12:40 Carbon Dioxide 20 mEq/l (22-31) L 05/24/17 12:40 Anion Gap 17 mEq/L (8-16) H 05/24/17 12:40 BUN 11 mg/dL (7-23) 05/24/17 12:40 Creatinine 1.0 mg/dL (0.7-1.3) 05/24/17 12:40 Estimated GFR > 60 05/24/17 12:40 Glucose 97 mg/dL (70-100) 05/24/17 12:40 Calcium 9.6 mg/dL (8.5-10.4) 05/24/17 12:40 Magnesium 2.0 mg/dL (1.6-2.3) 05/24/17 12:40 Triglycerides 94 mg/dL (40-150) 05/24/17 12:40 Cholesterol 203 mg/dL (140-220) 05/24/17 12:40 Cholesterol Risk Factr 0.5 (0.2-1.0) 05/24/17 12:40 LDL Cholesterol, Calc 125 mg/dL (80-100) H 05/24/17 12:40 LDL Risk Factor 0.8 (0.2-1.0) 05/24/17 12:40 VLDL Cholesterol 18 mg/dL (8-25) 05/24/17 12:40 Non-HDL Cholesterol 143 mg/dL (90-129) H 05/24/17 12:40 HDL Cholesterol 60 mg/dL (40-65) 05/24/17 12:40 LDL/HDL Ratio 2.08 RATIO (1.00-3.64) 05/24/17 12:40 Cholesterol/HDL Ratio 3.38 RATIO (1.00-4.97) 05/24/17 12:40 Patient ABO/Rh A POSITIVE 05/24/17 12:40 Antibody Screen NEGATIVE 05/24/17 12:40 Imaging Review: 05/24 [facility] with [address]. Chavira: no significant CAD Visualized and Interpreted Chest x-ray results: Yes Chest X-Ray results: no infiltrate, effusion (small left) Visualized and Interpreted EKG results: Yes EKG Interpretation: Positive for: normal sinsus rhythm Assessment & Plan Assessment: 72M with AI, asc ao aneurysm Plan: AVR, asc ao repair 05/25 at 7:15 AM. Consents in AM. Orders in charts.
[2017-05-24] MEDS ORDERED: CHLORHEXIDINE GLUC HIBICLENS 118 ML BTL TP SCH (21:00)
[2017-05-25] MEDS ORDERED: PHENYLEPHRINE HCL 50 MG in NS 250 ML IV ONE (06:00)
[2017-05-25] MEDS ORDERED: MUPIROCIN 2% 22 GM OINT NS ONE (06:00)
[2017-05-25] MEDS ORDERED: CITRATE DEXTROSE SOLN 500 ML BAG MISC ONE (06:00)
[2017-05-25] MEDS ORDERED: NOREPINEPHRINE BITARTRATE 16 MG in NS 250 ML IV ONE (06:00)
[2017-05-25] MEDS ORDERED: SODIUM BICARBONATE 20 MEQ, LIDOCAINE 1% 10 ML in NORMOSOL-R 1,000 ML MISC ONE (06:00)
[2017-05-25] MEDS ORDERED: MANNITOL 25% 12.5 GM/50 ML VIAL IVP ONE (06:00)
[2017-05-25] MEDS ORDERED: ceFAZolin 2 GM/SWFI 2 GM/20 ML SYR IVP ONE (06:00)
[2017-05-25] MEDS ORDERED: INSULIN REGULAR HUMAN 100 UNIT in NS 100 ML IV ONE (06:00)
[2017-05-25] MEDS ORDERED: TRANEXAMIC ACID 1,000 MG in NS (SYRINGE) 50 ML IV ONE (06:00)
[2017-05-25] MEDS ORDERED: LR 1,000 ML IV ONE (06:23)
[2017-05-25] MEDS ORDERED: MILRINONE/DEXTROSE/100 ML BAG IV ONE (06:36)
[2017-05-25] MEDS ORDERED: NA BICARBONATE 50 MEQ/50 ML VIAL ONE (06:36)
[2017-05-25] MEDS ORDERED: LIDOCAINE 2% 100 MG/5 ML SYR ONE ×2 (06:36→07:19)
[2017-05-25] MEDS ORDERED: PROTAMINE SULFATE 50 MG/5 ML VIAL IVP ONE (06:36)
[2017-05-25] MEDS ORDERED: ALBUMIN 5% 250 ML BOTTLE IV ONE ×2 (06:36→10:38)
[2017-05-25] MEDS ORDERED: CALCIUM CHLORIDE 1 GM/10 ML INJ ONE ×2 (06:36→07:19)
[2017-05-25] MEDS ORDERED: ADENOSINE 6 MG/2 ML VIAL ONE (06:37)
[2017-05-25] MEDS ORDERED: ceFAZolin 1 GM VIAL ONE (06:37)
[2017-05-25] MEDS ORDERED: DOPamine/DEXTROSE/250 ML BAG IV ONE (06:37)
[2017-05-25] MEDS ORDERED: MAGNESIUM SULFATE 1 GM/2 ML VIAL ONE (06:37)
[2017-05-25] MEDS ORDERED: niCARdipine/NACL/200 ML BAG IV ONE (06:37)
[2017-05-25] MEDS ORDERED: AMIODARONE HCL 150 MG/3 ML VIAL ONE (06:37)
[2017-05-25] MEDS ORDERED: methylPREDNISolone SOD SUCC 1 GM/8 ML VIAL ONE (06:37)
[2017-05-25] MEDS ORDERED: HEPARIN 10,000 UNIT/10 ML MDV (1,000 UNIT/ML) ONE (06:37)
[2017-05-25] MEDS ORDERED: CITRATE DEXTROSE SOLN 500 ML BAG ONE (06:37)
[2017-05-25] MEDS ORDERED: MINERAL OIL 10 ML VIAL ONE (06:48)
[2017-05-25] MEDS ORDERED: MIDAZOLAM 2 MG/2 ML VIAL IVP ONE (07:01)
[2017-05-25] MEDS ORDERED: MIDAZOLAM 2 MG/2 ML VIAL ONE ×2 (07:10→07:18)
--- NOTE | 2017-05-25 07:10 | PDANEPAE ---
ANE History of Present Illness s/f AVR and Ascending Ao Repair ANE Past Medical History - Cardiovascular History Hx Hypertension: No Hx Arrhythmias: No Hx Chest Pain: No Hx Coronary Artery / Peripheral Vascular Disease: No Hx CHF / Valvular Disease: No Hx Palpitations: No Cardiovascular History Comment: AORTIC REGURGITATION. ASCENDING AORTIC ANEURYSM - Pulmonary History Hx COPD: No Hx Asthma/Reactive Airway Disease: No Hx Recent Upper Respiratory Infection: No Hx Oxygen in Use at Home: No Hx Sleep Apnea: No Sleep Apnea Screening Result - Last Documented: Positive Pulmonary History Comment: PULMONARY EMBOLISM 12/2016 - Neurologic History Hx Cerebrovascular Accident: No Hx Seizures: No Hx Dementia: No - Endocrine History Hx Diabetes: No - Renal History Hx Renal Disorders: No Renal History Comment: hx of cyst on kidney - Liver History Hx Hepatic Disorders: No - Neurological & Psychiatric Hx Hx Neurological and Psychiatric Disorders: No - Cancer History Hx Cancer: No - Congenital Disorder History Hx Congenital Disorders: No - GI History Hx Gastrointestinal Disorders: No - Other Health History Other Health History: NEG - Chronic Pain History Chronic Pain: No (left hip and right shoulder pain) - Surgical History Prior Surgeries: L RENETTA. cyst removed from right kidney 06/2015. 2012 foot/ heel surgery. 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 ANE Review of Systems Review of Systems: - Exercise capacity METS (RN): 4 METS ANE Patient History - Allergies Allergies/Adverse Reactions: No Known Allergies Allergy (Verified 05/25/17 06:17) - Home Medications Home medications: home medication list seen and reviewed Home Medications: Herbals/Supplements -Info Only 1 ea PO DAILY 12/28/16 [Last Taken 05/17/17 10:00 ] Multivitamins [Multivitamin (*)] 1 each PO DAILY 12/28/16 [Last Taken 05/17/17 10:00] Enoxaparin [Lovenox 80 MG (*)] 80 mg SQ BID 05/18/17 [Last Taken 05/23/17 10:00] Lisinopril [Zestril 20 mg (*)] 20 mg PO DAILY 05/18/17 [Last Taken 05/24/17 10: 00] Warfarin Sodium [Coumadin 1MG (*)] 3.5 mg PO FR 05/18/17 [Last Taken 05/11/17 10 :00] Warfarin Sodium [Coumadin 3MG (*)] 3 mg PO SUMOTUWETHSA 05/18/17 [Last Taken 11/24 10:00] - NPO status NPO Status: no food or drink >8 hours NPO Since - Liquids (Date): 05/24/17 NPO Since - Liquids (Time): 23:00 NPO Since - Solids (Date): 05/24/17 NPO Since - Solids (Time): 19:00 - Anes Hx Anes Hx: no prior problems - Smoking Hx Smoking Status: Former smoker - Alcohol Use Alcohol Use: None - Family Anes Hx Family Anes Hx: none Family Hx Anesthesia Complications: none ANE Labs/Vital Signs - Labs Result Diagrams: 05/24/17 12:40 05/24/17 12:40 - Vital Signs Blood Pressure: 161/76 Heart Rate: 66 Respiratory Rate: 16 O2 Sat (%): 90 Height: 168 cm Weight: 72 kg ANE Physical Exam - Airway Neck exam: FROM Mallampati Score: Class 2 Mouth exam: normal dental/mouth exam, hdz - Pulmonary Pulmonary: no respiratory distress - Cardiovascular Cardiovascular: regular rate and rhythym - ASA Status ASA Status: II ANE Anesthesia Plan Anesthesia Plan: general endotracheal anesthesia Lines/Monitors: arterial line, central line
[2017-05-25] MEDS ORDERED: ROCURONIUM 100 MG/10 ML VIAL ONE (07:19)
[2017-05-25] MEDS ORDERED: REMIFENTANIL HCL 1 MG VIAL ONE (07:19)
[2017-05-25] MEDS ORDERED: DEXAMETHASONE 4 MG/ML VIAL ONE ×2 (07:19)
[2017-05-25] MEDS ORDERED: PROPOFOL/EMULSION 500 MG/50 ML BOTTLE IV ONE (07:19)
[2017-05-25] MEDS ORDERED: ONDANSETRON 4 MG/2 ML VIAL ONE (07:19)
[2017-05-25] MEDS ORDERED: fentaNYL 250 MCG/5 ML INJ ONE (07:19)
[2017-05-25] MEDS ORDERED: PHENYLEPHRINE HCL 100 MCG/ML SYR ONE (07:19)
[2017-05-25] MEDS ORDERED: LIDOCAINE HCL 160 MG/4 ML LTA KIT TP ONE (07:27)
[2017-05-25] MEDS ORDERED: DEXMEDETOMIDINE/NS 4MCG/ML 50 ML BTL IV ONE (09:47)
[2017-05-25] MEDS ORDERED: ISOFLURANE 100 ML BOTTLE IH ONE (10:23)
[2017-05-25] MEDS ORDERED: NS 1,000 ML IV SCH (11:45)
[2017-05-25] MEDS ORDERED: ACETAMINOPHEN 650 MG SUPP PR PRN (11:45)
[2017-05-25] MEDS ORDERED: ONDANSETRON DISINTEGRATING 4 MG TAB PO PRN (11:45)
[2017-05-25] MEDS ORDERED: SODIUM CL NASAL 45 ML BTL EACHNARE PRN (11:45)
[2017-05-25] MEDS ORDERED: fentaNYL 100 MCG/2 ML INJ IVP PRN (11:45)
[2017-05-25] MEDS ORDERED: MAGNESIUM SULF 2 GM/WATER 50 ML IV ONE (11:45)
[2017-05-25] MEDS ORDERED: POLYETHYLENE GLYCOL 3350 17 GM PKT PO PRN (11:45)
[2017-05-25] MEDS ORDERED: MAGNESIUM HYDROXIDE 30 ML UDCUP PO PRN (11:45)
[2017-05-25] MEDS ORDERED: POTASSIUM Cl (KCl) 50 ML IV PRN (11:45)
[2017-05-25] MEDS ORDERED: BISACODYL 10 MG SUPP PR PRN (11:45)
[2017-05-25] MEDS ORDERED: D50W 25 GM/50 ML SYR IVP PRN (11:45)
[2017-05-25] MEDS ORDERED: ACETAMINOPHEN 325 MG TAB PO PRN (11:45)
[2017-05-25] MEDS ORDERED: CEPACOL LOZENGE PO PRN (11:45)
[2017-05-25] MEDS ORDERED: MEPERIDINE 25 MG/ML SYR IVP PRN (11:45)
[2017-05-25] MEDS ORDERED: ALBUMIN 5% 250 ML IV PRN (11:45)
[2017-05-25] MEDS ORDERED: LACTULOSE 20 GM/30 ML UDCUP PO PRN (11:45)
[2017-05-25] MEDS ORDERED: METOCLOPRAMIDE 10 MG/2 ML VIAL IVP PRN (11:45)
[2017-05-25] MEDS ORDERED: PANTOPRAZOLE SODIUM 40 MG VIAL IVP ONE ×2 (11:45→15:30)
[2017-05-25] MEDS ORDERED: INSULIN REGULAR HUMAN 100 UNIT in NS 100 ML IV SCH (12:00)
--- NOTE | 2017-05-25 12:58 | CPEKG ---
Heart Rate: 83 RR Interval: 723 P-R Interval: 162 QRSD Interval: 102 QT Interval: 408 QTC Interval: 480 P [place]: 76 QRS [place]: 71 T Wave [place]: -30 EKG Severity - BORDERLINE ECG - EKG Impression: SINUS RHYTHM EKG Impression: BORDERLINE INFERIOR Q WAVES EKG Impression: BORDERLINE PROLONGED QT INTERVAL Electronically Signed By: Rohit Macias 25-May-2017 14:27:07
[2017-05-25] MEDS ORDERED: ceFAZolin 2 GM/DEXTROSE 100 ML IV SCH (14:00)
[2017-05-25] MEDS: ONDANSETRON 4 MG/2 ML VIAL IVP PRN ×2 (14:11→19:21)
[2017-05-25] MEDS: KETOROLAC 15 MG/1 ML SDV IVP SCH ×2 (14:11→17:43)
[2017-05-25] MEDS ORDERED: PANTOPRAZOLE SODIUM 40 MG in NS 100 ML IV SCH (14:15)
[2017-05-25] MEDS: ceFAZolin 2 GM/SWFI 2 GM/20 ML SYR IVP SCH ×2 (14:21→22:08)
[2017-05-25] MEDS ORDERED: fentaNYL 25 MCG PATCH TD ONE (15:30)
[2017-05-25] MEDS ORDERED: ALBUTEROL 3 ML DEYVIAL IH PRN (16:24)
--- NOTE | 2017-05-25 17:08 | GCON ---
[f rep st] CONSULTATION PULMONARY/CRITICAL CARE CONSULTATION. DATE OF CONSULTATION: 05/25/2017 REFERRING PHYSICIAN: Yoshi Sandoval DO REASON FOR CONSULTATION: History of pulmonary embolism, possible COPD. HISTORY: The patient is a 72-year-old male who was found on outpatient evaluation to have moderate a ortic regurgitation and a thoracic aortic aneurysm. He had a heart catheterization that excluded any significant coronary artery disease. He underwent an aortic valve replacement and aortic root repla cement. His intraoperative course was remarkable for a protamine reaction that responded to treatmen t intraoperatively, as well as some bleeding that resulted in the patient going back on pump briefly. The patient was returned to the intensive care intubated, and was extubated a few hours later. He reports having significant anterior and posterior chest pain, but does not feel particularly dyspneic . He denies a history of significant dyspnea as an outpatient. He denies prior cough or exacerbatin g exacerbations. PAST MEDICAL HISTORY: 1. Diverticulosis. 2. Nephrolithiasis. 3. Pulmonary embolism. This was diagnosed in December 2016 when he presented with pleuritic chest pain. A CT scan showed a left lower lobe pulmonary embolism as well as probable infarct. He has bee n treated with Coumadin since that time. ALLERGIES: None. SOCIAL HISTORY: The patient has about a 40 pack-year history of smoking time which he stopped 5 rashi hs ago. He drinks 2-6 beers nightly. FAMILY HISTORY: Unremarkable. REVIEW OF SYSTEMS: A 10-point review of systems adds nothing to the history of present illness. PHYSICAL EXAMINATION: GENERAL: The patient is awake, alert, and in no acute distress. VITAL SIGNS: Blood pressure is 129/75 with a heart rate of 64. He is afebrile. Oxygen saturations are in the 9 0s on nasal cannula oxygen. HEENT: Normocephalic and atraumatic. No icterus. NECK: No adenopathy . Trachea is midline. CHEST: Clear to auscultation. CARDIAC: Regular rate and rhythm without mur mur. ABDOMEN: Soft and nontender. Bowel sounds are present. EXTREMITIES: No clubbing, cyanosis, or edema. NEURO: The patient is awake, alert. He is oriented x3. He has no gross motor or sensory deficits. LABORATORIES: Hemoglobin is 16.2 and white blood count is 6.3 preoperatively. No postoperative labs are available. An anion gap is 17 with a carbon dioxide level of 20 preoperatively. Hemoglobin A1c was 5.9. A chest x-ray shows clear lung us. Images reviewed by me. A CT scan from December 2016 shows a left lower lobe pulmonary embolism with an infarct. He has an ascending aortic aneurysm of 5.5 cm. No emphysema. Images reviewed by me. ASSESSMENT: 1. Status post aortic aneurysm and aortic valve replacement. The patient has done well perioperativ marixa with some intraoperative bleeding which was addressed, and there is no evidence of active bleedin g. A postprocedure H and H is pending. 2. Pulmonary embolism. This was diagnosed in December. He has been treated with Coumadin. This w as stopped preoperatively, and the patient has been treated with Lovenox. 3. Possible chronic obstructive pulmonary disease. The patient has a 40 pack-year history of smokin g, but does not really have signs or symptoms of significant chronic obstructive pulmonary disease. His CT scan does not show any significant emphysema. 4. History of alcohol use. RECOMMENDATIONS: 1. An H and H will be checked and followed. 2. Lovenox and then Coumadin will be restarted postoperatively when okay with Dr. Sandoval. 3. Bronchodilators can be used on a p.r.n. basis. 4. Follow for signs/symptoms of alcohol withdrawal. /[id number]/MODL
--- NOTE | 2017-05-25 18:22 | POSTANESTH ---
Post Anesthetic Evaluation Cardiovascular Status: Normal, Stable Respiratory Status: Tx Decrease in SpO2 Level of Consciousness/Mental Status: Can Participate in Eval, Mildly Sleepy, Arousable Pain Control: Adequate, Prn Tx Ordered Nausea/Vomiting Control: Adequate, Prn Tx Ordered Complications Possibly Related to Anesthesia: None Noted
[2017-05-25] MEDS: BEER 1 EACH EA PO SCH (18:24)
[2017-05-25] MEDS: HYDROCODONE/APAP 5/325 TAB PO PRN (19:23)
[2017-05-25] MEDS: MUPIROCIN 2% 22 GM OINT NS SCH (22:09)
[2017-05-26] MEDS: SENNOSIDES/DOCUSATE SODIUM TAB PO SCH ×3 (01:08→20:59)
[2017-05-26] MEDS: KETOROLAC 15 MG/1 ML SDV IVP SCH ×5 (01:08→23:09)
[2017-05-26 04:10] LABS: PLATELET COUNT 47 10^3/uL (150-400)
[2017-05-26] MEDS: ceFAZolin 2 GM/SWFI 2 GM/20 ML SYR IVP SCH ×3 (05:03→23:09)
[2017-05-26] MEDS ORDERED: HEPARIN 5,000 UNIT/0.5 ML SYR SC SCH (06:00)
--- NOTE | 2017-05-26 07:26 | SOAPPROG ---
SOAP Progress Note Assessment/Plan: POD #1: aortic root replacement with freestyle bioprosthesis, ascending aortic repair, AtriClip CHRIS Moderate AI with asc aortic aneurysm s/p root replacement/aneurysm repair - FC/AL out, chest tubes to bulb suction - BB/ASA for secondary prevention - SCDs/heparin SQ for DVT prophylaxis - Transfer to PCU Acute blood loss anemia - - Stable without the need for transfusions h/o pulmonary emboli on Coumadin - Will restart Coumadin with further mgmt as per outpatient ETOH abuse - Pt drinks approximately 6 beers per night - No signs/symptoms of withdrawal - Beer ordered for pt while hospitalized COPD - Long h/o tobacco abuse with recent cessation - No current respiratory issues - Continue IS Subjective: Denies agitation/pain/SOB. Objective: Vital Signs Temp Pulse Resp BP Pulse Ox 37.1 C 90 19 127/65 H 93 05/26/17 04:00 05/26/17 06:00 05/26/17 06:00 05/26/17 06:00 05/26/17 06:00 Laboratory Results 05/26/17 04:00 05/26/17 04:00 05/25/17 05/26/17 05/27/17 05:59 05:59 05:59 Intake Total 1350 600 Output Total 2190 Balance 1350 -1590 PT 13.5 SEC (12.0-15.0) 05/24/17 12:40 INR 1.01 (0.83-1.16) 05/24/17 12:40 Physical Exam - Physical Exam General Appearance: WD/WN, alert, no apparent distress EENT: No scleral icterus (R), No scleral icterus (L) Neck: normal inspection Respiratory: No respiratory distress Cardiac/Chest: regular rate, rhythm Abdomen: non-tender, soft, No distended Skin: normal color, warm/dry Extremities: No pedal edema Neuro/Psych: no motor/sensory deficits, alert, normal mood/affect, oriented x 3 ICD10 Worksheet Patient Problems: Problems Problem Status Onset Status post combined aortic root and valve replacement using stentless bioprosthetic aortic valve Acute Lung nodule Acute Primary localized osteoarthritis of left hip Acute Pulmonary emboli Acute Thoracic aortic aneurysm Acute
[2017-05-26] MEDS: HYDROCODONE/APAP 5/325 TAB PO PRN (08:18)
[2017-05-26] MEDS ORDERED: traMADol 50 MG TAB PO PRN (08:28)
[2017-05-26] MEDS ORDERED: PANTOPRAZOLE SODIUM 40 MG TAB PO SCH (09:00)
[2017-05-26] MEDS ORDERED: METOPROLOL TARTRATE 25 MG TAB PO SCH (09:00)
[2017-05-26] MEDS ORDERED: ASPIRIN 81 MG CHEWABLE TAB PO SCH (09:00)
[2017-05-26] MEDS ORDERED: PANTOPRAZOLE SODIUM 40 MG in NS 100 ML IVP SCH (09:00)
[2017-05-26] MEDS ORDERED: PANTOPRAZOLE SODIUM 40 MG VIAL IVP SCH (09:00)
[2017-05-26] MEDS: MUPIROCIN 2% 22 GM OINT NS SCH ×2 (09:40→21:01)
[2017-05-26] MEDS: PANTOPRAZOLE SODIUM 40 MG TAB PO SCH (09:40)
[2017-05-26] MEDS: BEER 1 EACH EA PO SCH ×4 (09:41→23:24)
[2017-05-26] MEDS: WARFARIN SODIUM 3 MG TAB PO SCH (15:34)
--- NOTE | 2017-05-26 17:29 | ASMTCMCOM ---
CM Note CM Note Notes: Pt is s/p aortic root replacement. PT/OT have cleared. Anticipate d/c home with no CM needs. Of note is pt states he drinks 6 beers daily. CM will follow for any change in needs. Date Signed: 05/26/2017 05:28 PM Electronically Signed By:KIRAN Estrada
[2017-05-26] MEDS: METOPROLOL TARTRATE 25 MG TAB PO SCH (20:59)
[2017-05-27] MEDS: KETOROLAC 15 MG/1 ML SDV IVP SCH ×3 (05:07→18:30)
[2017-05-27 06:05] LABS: PLATELET COUNT 38 10^3/uL (150-400)
[2017-05-27 06:26] LABS: INR 1.41 (0.83-1.16); PROTIME(PATIENT) 17.4 SEC (12.0-15.0)
--- NOTE | 2017-05-27 07:22 | SOAPPROG ---
SOAP Progress Note Assessment/Plan: POD #2: aortic root replacement with freestyle bioprosthesis, ascending aortic repair, AtriClip CHRIS Moderate AI with asc aortic aneurysm s/p root replacement/aneurysm repair - BB/ASA for secondary prevention - SCDs/heparin SQ for DVT prophylaxis Acute blood loss anemia - - Stable without the need for transfusions Thrombocytopenia - Secondary to CPB - Precautionary HIT sent - Heparin and ASA on hold until rebound Fluid overload - +4 kg from baseline weight - Will start daily Lasix h/o pulmonary emboli on Coumadin - Coumadin restarted with further mgmt as per outpatient ETOH abuse - Pt drinks approximately 6 beers per night - No signs/symptoms of withdrawal - Beer ordered for pt while hospitalized COPD - Long h/o tobacco abuse with recent cessation - No current respiratory issues - Continue IS Subjective: No complaints. Objective: Vital Signs Temp Pulse Resp BP Pulse Ox 36.6 C 80 18 104/61 92 05/27/17 04:00 05/27/17 04:00 05/27/17 04:00 05/27/17 04:00 05/27/17 04:00 Laboratory Results 05/27/17 05:40 05/27/17 05:40 05/26/17 05/27/17 05/28/17 05:59 05:59 05:59 Intake Total 600 1420 Output Total 2190 1415 Balance -1590 5 PT 17.4 SEC (12.0-15.0) H 05/27/17 05:40 INR 1.41 (0.83-1.16) H 05/27/17 05:40 Physical Exam - Physical Exam General Appearance: WD/WN, alert, no apparent distress EENT: No scleral icterus (R), No scleral icterus (L) Neck: normal inspection Respiratory: No respiratory distress Cardiac/Chest: regular rate, rhythm Abdomen: non-tender, soft, No distended Skin: normal color, warm/dry Extremities: pedal edema Neuro/Psych: no motor/sensory deficits, alert, normal mood/affect, oriented x 3 ICD10 Worksheet Patient Problems: Problems Problem Status Onset Status post combined aortic root and valve replacement using stentless bioprosthetic aortic valve Acute Lung nodule Acute Primary localized osteoarthritis of left hip Acute Pulmonary emboli Acute Thoracic aortic aneurysm Acute
[2017-05-27] MEDS: FUROSEMIDE 40 MG TAB PO SCH (09:09)
[2017-05-27] MEDS: METOPROLOL TARTRATE 25 MG TAB PO SCH ×2 (09:09→20:45)
[2017-05-27] MEDS: POTASSIUM CL 20 MEQ TAB PO SCH (09:09)
[2017-05-27] MEDS: PANTOPRAZOLE SODIUM 40 MG TAB PO SCH (09:09)
[2017-05-27] MEDS: SENNOSIDES/DOCUSATE SODIUM TAB PO SCH ×2 (09:10→20:46)
[2017-05-27] MEDS: MUPIROCIN 2% 22 GM OINT NS SCH (09:17)
[2017-05-27] MEDS: BEER 1 EACH EA PO SCH ×3 (10:21→16:40)
[2017-05-27] MEDS: WARFARIN SODIUM 3 MG TAB PO SCH (16:39)
[2017-05-28] MEDS: KETOROLAC 15 MG/1 ML SDV IVP SCH ×2 (00:45→06:29)
[2017-05-28 05:28] LABS: INR 1.32 (0.83-1.16); PROTIME(PATIENT) 16.6 SEC (12.0-15.0)
--- NOTE | 2017-05-28 06:48 | SOAPPROG ---
SOAP Progress Note Assessment/Plan: Assessment: POD#3 AVR/root with 25 mm freestyle porcine root, ascending aortic repair, prophylactic AtriClip ligation CHRIS Moderate AI with asc aortic aneurysm s/p root replacement/aneurysm repair - tubes and wires out - BB/ASA for secondary prevention - SCDs/heparin SQ for DVT prophylaxis Acute blood loss anemia with thrombocytopenia - Stable without the need for transfusions - Precautionary HIT sent - Heparin and ASA on hold while platelets depressed Fluid overload - +4 kg from baseline weight - Cont daily Lasix Postop AF - self-limited runs with CVR - uptitration of BB as allowed by BP - reserve amio for RVR - antithrombotic prophylaxis as per hx PE h/o pulmonary emboli on Coumadin - Coumadin restarted with further mgmt as per outpatient ETOH abuse - Pt drinks approximately 6 beers per night - No signs/symptoms of withdrawal - Beer with meals prn but not yet indulged COPD - Long h/o tobacco abuse with recent cessation - No current respiratory issues - Continue IS Plan: Stop toradol. Consider inc metoprolol tartrate to 37.5 mg BID tonight. Cont lasix 40 mg daily. Cont home coumadin regimen. Baseline postop echo today. Dispo - Anticipate home without services next 1-2 days. 05/28/17 07:47 Subjective: Doing ok. Beginning to mobilize phlegm. No incisional discomfort. Tolerating light activity with relative ease. Objective: Vital Signs Temp Pulse Resp BP Pulse Ox 36.6 C 74 16 123/59 H 93 05/28/17 04:00 05/28/17 04:00 05/28/17 04:00 05/28/17 04:00 05/28/17 04:00 Laboratory Results 05/27/17 05:40 05/27/17 05:40 05/27/17 05/28/17 05/29/17 05:59 05:59 05:59 Intake Total 1420 1140 Output Total 1415 1125 Balance 5 15 PT 16.6 SEC (12.0-15.0) H 05/28/17 05:00 INR 1.32 (0.83-1.16) H 05/28/17 05:00 Predom rhythm sinus 70s with occ PACs. Few bursts of AF this am. Min suppl O2 req. Balanced I/Os. +4 kg overall. INR yet to rise. - Pending Discharge Pending Discharge Within 48 Hours: Yes Pending Discharge Date: 05/30/17 Pending Discharge Time: 11:00 Physical Exam - Physical Exam General Appearance: alert, no apparent distress Respiratory: lungs clear (grossly) Cardiac/Chest: regular rate, rhythm Abdomen: non-tender, soft Skin: warm/dry Extremities: swelling (1+ dependent) ICD10 Worksheet Patient Problems: Problems Problem Status Onset Status post combined aortic root and valve replacement using stentless bioprosthetic aortic valve Acute Lung nodule Acute Primary localized osteoarthritis of left hip Acute Pulmonary emboli Acute Thoracic aortic aneurysm Acute
[2017-05-28] MEDS: METOPROLOL TARTRATE 25 MG TAB PO SCH ×2 (08:18→20:07)
[2017-05-28] MEDS: PANTOPRAZOLE SODIUM 40 MG TAB PO SCH (08:19)
[2017-05-28] MEDS: FUROSEMIDE 40 MG TAB PO SCH (08:19)
[2017-05-28] MEDS ORDERED: SENNOSIDES/DOCUSATE SODIUM TAB PO PRN (09:00)
[2017-05-28] MEDS: BEER 1 EACH EA PO SCH ×2 (09:13→12:24)
[2017-05-28] MEDS: POTASSIUM CL 20 MEQ TAB PO SCH (09:14)
[2017-05-28] MEDS ORDERED: BEER 1 EACH EA PO PRN (12:03)
[2017-05-28] MEDS: BENZONATATE 100 MG CAP PO PRN (12:23)
--- NOTE | 2017-05-28 12:48 | ECHO ---
[email or web address] [address] [address] Main: [phone] Fax: Transthoracic Echocardiogram Name: SIMON WELLER MR#: [id number] Study Date: 05/28/2017 Study Time: 11:09 AM Date of : 1945 Age: 72 year(s) Height: 167.6 cm (66 in.) Weight: 76.66 kg (169 lb.) BSA: 1.86 m2 Gender: Male Examination: Echo Indication: S/P aortic root replacement with freesytle bioprosthesis Image Quality: Technically Difficult Contrast: Requested by: Bo Dong BP: 130 mmHg/89 mmHg Heart Rate: 89 bpm Rhythm: Indication: S/P aortic root replacement with freesytle bioprosthesis Procedure Staff Histology Technologist: Hope Woods [facility] Reading Physician: Rohit Macias Requesting Provider: Conclusions: Mild concentric LV hypertrophy. EF is 71 %. Mild mitral annular calcification. Mild mitral valve regurgitation is present. Aortic valve is not well visualized. There is no tricuspid valve regurgitation. Measurements: Chambers Valvular Assessment AV/MV Valvular Assessment TV/PV Normal Normal Normal Name Value Range Name Value Range Name Value Range IVSd (2D): 1.1 cm (0.6 cm-1.1 AV Vmax: 1.57 m/s (1 m/s-1.7 PV Vmax: 1.06 m/s (0.6 m/s-0.9 cm) m/s) m/s) LVDd (2D): 4.0 cm (4.2 cm-5.9 AV maxP mmHg ( - ) PV PGmax: 4 mmHg ( - ) cm) AV meanP mmHg ( - ) LVDs (2D): 2.6 cm (2.1 cm-4 LVOT Vmax: 1.29 m/s (0.7 m/s-1.1 cm) m/s) LVPWd (2D): 1.1 cm (0.6 cm-1 MV E Vmax: 1.44 m/s ( - ) cm) MV A Vmax: 0.39 m/s ( - ) LVEF (MOD4): 71 % (>=55 %) MV E/A: 3.69 ( - ) RVDd(2D): 2.9 cm (1.9 cm-3.8 cmmm) Continued Measurements: Valvular Assessment AV/MV Name Value MV DecTime: 250 m/s MV E/E' Septal: 15.40 Patient: SIMON WELLER Study Date: 05/28/2017 Page 1 of 2 11:09 AM Additional Vessels Name Value Ao Ascendin.3 cm Findings: Left Ventricle: Normal size left ventricle. Mild concentric LV hypertrophy. Normal global systolic LV function. EF is 71 %. No regional wall motion abnormality. Right Ventricle: Normal size right ventricle. Normal RV function. Left Atrium: The left atrium is normal in size. Right Atrium: The right atrium is normal in size. Mitral Valve: Mild mitral annular calcification. Mild mitral valve regurgitation is present. No mitral stenosis is present. Aortic Valve: Aortic valve is not well visualized. There is no aortic valve regurgitation. No aortic valve stenosis is present. Tricuspid Valve: The tricuspid valve appears normal. There is no tricuspid valve regurgitation. Pulmonary artery pressure is not obtained due to inadequate TR jet. Pulmonic Valve: Pulmonary valve not well visualized. Aorta: Ascending aorta not well visualized.. Normal size aortic root. Normal size ascending aorta measuring 2.3 cm. Pericardium: No pericardial effusion. (No Signature Object) Patient: SIMON WELLER Study Date: 05/28/2017 Page 2 of 2 11:09 AM [id number]
[2017-05-28] MEDS: WARFARIN SODIUM 3 MG TAB PO SCH (15:17)
[2017-05-29] MEDS: HYDROCODONE/APAP 5/325 TAB PO PRN ×2 (01:40→21:26)
[2017-05-29] MEDS: BENZONATATE 100 MG CAP PO PRN ×3 (01:41→21:25)
[2017-05-29 06:14] LABS: INR 1.53 (0.83-1.16); PROTIME(PATIENT) 18.5 SEC (12.0-15.0)
--- NOTE | 2017-05-29 08:02 | SOAPPROG ---
SOAP Progress Note Assessment/Plan: POD #4: aortic root replacement with freestyle bioprosthesis, ascending aortic repair, AtriClip CHRIS Moderate AI with asc aortic aneurysm s/p root replacement/aneurysm repair - BB/ASA for secondary prevention - SCDs/heparin SQ for DVT prophylaxis Acute blood loss anemia - Stable without the need for transfusions Thrombocytopenia - Secondary to CPB - Precautionary HIT pending - Heparin SQ held until rebound > 100 Fluid overload - Continue daily Lasix h/o pulmonary emboli on Coumadin - Coumadin restarted with further mgmt as per outpatient ETOH abuse - No signs/symptoms of withdrawal COPD - Long h/o tobacco abuse with recent cessation - No current respiratory issues - Continue IS Subjective: Feels well. Ready to go home. Objective: Vital Signs Temp Pulse Resp BP Pulse Ox 36.5 C 74 13 130/67 H 91 L 05/29/17 07:57 05/29/17 07:57 05/29/17 07:57 05/29/17 07:57 05/29/17 07:57 Laboratory Results 05/29/17 05:45 05/29/17 05:45 05/28/17 05/29/17 05/30/17 05:59 05:59 05:59 Intake Total 1140 850 Output Total 1125 1950 Balance 15 -1100 PT 18.5 SEC (12.0-15.0) H 05/29/17 05:45 INR 1.53 (0.83-1.16) H 05/29/17 05:45 Physical Exam - Physical Exam General Appearance: WD/WN, alert, no apparent distress EENT: No scleral icterus (R), No scleral icterus (L) Neck: normal inspection Respiratory: No respiratory distress Cardiac/Chest: regular rate, rhythm Abdomen: non-tender, soft, No distended Skin: normal color, warm/dry Extremities: No pedal edema Neuro/Psych: no motor/sensory deficits, alert, normal mood/affect, oriented x 3 ICD10 Worksheet Patient Problems: Problems Problem Status Onset Status post combined aortic root and valve replacement using stentless bioprosthetic aortic valve Acute Lung nodule Acute Primary localized osteoarthritis of left hip Acute Pulmonary emboli Acute Thoracic aortic aneurysm Acute
[2017-05-29] MEDS: POTASSIUM CL 20 MEQ TAB PO SCH (08:50)
[2017-05-29] MEDS: METOPROLOL TARTRATE 25 MG TAB PO SCH (08:50)
[2017-05-29] MEDS: PANTOPRAZOLE SODIUM 40 MG TAB PO SCH (08:50)
[2017-05-29] MEDS: FUROSEMIDE 40 MG TAB PO SCH (08:50)
[2017-05-29] MEDS ORDERED: METOPROLOL TARTRATE 25 MG TAB PO ONE (14:12)
[2017-05-29] MEDS: WARFARIN SODIUM 3 MG TAB PO SCH (14:56)
[2017-05-29] MEDS: AMIODARONE HCL 200 MG TAB PO SCH ×2 (14:57→21:26)
[2017-05-29] MEDS: METOPROLOL TARTRATE 50 MG TAB PO SCH (21:26)
--- NOTE | 2017-05-30 06:32 | SOAPPROG ---
SOAP Progress Note Assessment/Plan: POD #5: aortic root replacement with freestyle bioprosthesis, ascending aortic repair, AtriClip CHRIS Moderate AI with asc aortic aneurysm s/p root replacement/aneurysm repair - BB/ASA for secondary prevention - SCDs/heparin SQ for DVT prophylaxis Acute blood loss anemia - Stable without the need for transfusions Thrombocytopenia - Secondary to CPB - Precautionary HIT pending - Heparin SQ held until rebound > 100 Fluid overload - Continue daily Lasix h/o pulmonary emboli on Coumadin - Coumadin restarted with further mgmt as per outpatient ETOH abuse - No signs/symptoms of withdrawal COPD - Long h/o tobacco abuse with recent cessation - No current respiratory issues - Continue IS Post-op atrial fibrillation - Continue BB/amiodarone - Coumadin for thromboprophylaxis Subjective: No complaints. Ready to go home. Objective: Vital Signs Temp Pulse Resp BP Pulse Ox 36.8 C 67 13 111/56 L 94 05/30/17 04:00 05/30/17 04:00 05/30/17 04:00 05/30/17 04:00 05/30/17 04:00 Laboratory Results 05/29/17 05:45 05/29/17 05:45 05/29/17 05/30/17 05/31/17 05:59 05:59 05:59 Intake Total 850 250 Output Total 1950 1850 Balance -1100 -1600 PT 18.5 SEC (12.0-15.0) H 05/29/17 05:45 INR 1.53 (0.83-1.16) H 05/29/17 05:45 Physical Exam - Physical Exam General Appearance: WD/WN, alert, no apparent distress EENT: No scleral icterus (R), No scleral icterus (L) Neck: normal inspection Respiratory: No respiratory distress Cardiac/Chest: regular rate, rhythm Abdomen: non-tender, soft, No distended Skin: normal color, warm/dry Extremities: No pedal edema Neuro/Psych: no motor/sensory deficits, alert, normal mood/affect, oriented x 3 ICD10 Worksheet Patient Problems: Problems Problem Status Onset Status post combined aortic root and valve replacement using stentless bioprosthetic aortic valve Acute Lung nodule Acute Primary localized osteoarthritis of left hip Acute Pulmonary emboli Acute Thoracic aortic aneurysm Acute
[2017-05-30 06:51] LABS: INR 1.8 (0.83-1.16)
[2017-05-30 07:28] VITALS: BP 119/58; PULSE 69; RESP 17; TEMP 98.1; O2SAT 92
[2017-05-30] MEDS: METOPROLOL TARTRATE 50 MG TAB PO SCH (08:55)
[2017-05-30] MEDS: PANTOPRAZOLE SODIUM 40 MG TAB PO SCH (08:56)
[2017-05-30] MEDS: AMIODARONE HCL 200 MG TAB PO SCH (08:56)
[2017-05-30] MEDS ORDERED: FUROSEMIDE 20 MG TAB PO SCH (09:00)
[2017-05-30] MEDS ORDERED: POTASSIUM CL 10 MEQ TAB PO SCH (09:00)
--- NOTE | 2017-05-30 09:53 | ASMTCMCOM ---
CM Note CM Note Notes: Pts chart reviewed. The plan remains the same. Pt will d/c independent when medically stable. Therapies have cleared pt independent. Pt will attend outpatient cardiac rehab. CM available for changes. Plan: Independent Date Signed: 05/30/2017 09:52 AM Electronically Signed By:DENIZ Mejias
--- NOTE | 2017-05-30 13:01 | PDDCSUM ---
Discharge Summary Discharge Summary: ADMISSION DATE: 05/24/17 DISCHARGE DATE: 05/30/17 ADMISSION DX: 1. Moderate aortic insufficiency 2. Ascending aortic aneurysm 3. Pulmonary emboli on anticoagulation DISCHARGE DX: 1. Moderate aortic insufficiency 2. Ascending aortic aneurysm 3. Pulmonary emboli on anticoagulation 4. Acute blood loss anemia 5. Thrombocytopenia 6. Paroxysmal atrial fibrillation PROCEDURES 05/24/17, Yoshi Sandoval: 1. Aortic root replacement with #25 Magna bioprosthesis 2. Ascending aortic aneurysm repair 3. [facility] COURSE BY PROBLEM LIST 1. Moderate AI with ascending aortic aneurysm - s/p bioprosthetic aortic root replacement with aneurysm repair. ASA avoided as patient on Coumadin for h/o pulmonary emboli. 2. Pulmonary emboli on anticoagulation - Coumadin resumed. Pt to arrange INR to be checked on 06/01. 3. Paroxysmal atrial fibrillation - conversion SR with beta-blockers and amiodarone. Continue Coumadin for thromboprophylaxis. 4. Acute blood loss anemia with thrombocytopenia - stable without the need for transfusions. CONDITION Good DISPOSITION Home, self-care ACTIVITY Pt was instructed on sternal precautions, activity limitations, and which problems to call [facility] with. Please see Discharge Plan in chart for specifics. DISCHARGE MEDICATIONS Contineu: 1. Herbals/Supplements -Info Only 1 ea PO DAILY 2. Multivitamins [Multivitamin (*)] 1 each PO DAILY 3. Warfarin Sodium [Coumadin 1MG (*)] 3.5 mg PO FR 4. Warfarin Sodium [Coumadin 3MG (*)] 3 mg PO COCO New: 5. Acetaminophen [Tylenol 325mg (*)] 325 - 650 mg PO Q4HRS PRN 6. Benzonatate [Tessalon Pearles] 100 mg PO TID PRN 7. Furosemide [Lasix 20 MG (*)] 20 mg PO DAILY 8. Hydrocodone/APAP 5/325 [[place] 5/325 (*)] 1 - 2 tab PO Q4HRS PRN 9. Potassium Chloride [Klor-Con 10] 10 meq PO DAILY 10. Amiodarone HCl 200 mg PO BID (twice daily for 7 days then once daily) 11. Metoprolol Tartrate [Lopressor 50 mg (*)] 50 mg PO BID PENDING STUDIES/LABS 1. CXR prior to surgical follow-up 2. INR on 06/01 at PCP F/U APPOINTMENTS 1. Yoshi Sandoval 06/05/17, 10:00 AM
[2017-06-01] MEDS ORDERED: WARFARIN SODIUM 1 MG TAB PO SCH (16:00)
== END 2017-05-30 14:16 | disposition home or self-care (01) | DRG 217 ==
LOC: FCATH 12:13 → F2W 15:03 → F2N 05-25 06:32 → F2W 05-26 18:25
PROVIDERS: ADMIT Thoracic Surgery (Cardiothoracic Vascular Surgery); ATTEND Thoracic Surgery (Cardiothoracic Vascular Surgery)
DX: I35.1 Nonrheumatic aortic (valve) insufficiency (principal); I71.2 Thoracic aortic aneurysm, without rupture; D62 Acute posthemorrhagic anemia; D69.59 Other secondary thrombocytopenia; I97.89 Other postprocedural complications and disorders of the circulatory system, not elsewhere classified; I48.0 Paroxysmal atrial fibrillation; T45.7X5A Adverse effect of anticoagulant antagonists, vitamin K and other coagulants, initial encounter; F10.10 Alcohol abuse, uncomplicated; Z86.711 Personal history of pulmonary embolism; Z79.01 Long term (current) use of anticoagulants; Z87.891 Personal history of nicotine dependence; Z96.642 Presence of left artificial hip joint
CPT/HCPCS: 82947-QW; 86022-90; 97116-GP; 97161-GP; 97165-GO; 97530-GO; 97530-GP; 97535-GO; C1768; C1769; G8978-GP-CJ; G8979-GP-CI; G8980-GP-CI; G8987-GO-CJ; G8988-GO-CI; G8989-GO-CI; J0153; J0282; J0690; J1100; J1265; J1644; J1815; J1885; J2001; J2150; J2250; J2260; J2370; J2405; J2704; J2720; J2765; J2930; J3010; J3475; J7060; P9041; Q9967

== ENCOUNTER → 2017-06-04 | Outpatient (CLI) | payer OTHER | LOC: FIMAGING 10:25 | PROVIDERS: ATTEND Thoracic Surgery (Cardiothoracic Vascular Surgery) | DX: I51.7 Cardiomegaly (principal); Z95.2 Presence of prosthetic heart valve; Z98.890 Other specified postprocedural states; Z86.79 Personal history of other diseases of the circulatory system ==